=== PATIENT | male | born 1995 | race Two or more races ===

== ENCOUNTER 2023-09-16 14:21 | Inpatient (IN) | payer MEDICAID, OTHER ==
[~2023-09-16] VITALS: Ht 180.3 cm; Wt 106.7 kg
[2023-09-16] MEDS ORDERED: LORazepam 2 MG TABLET PO PRN (15:30)
[2023-09-16] MEDS ORDERED: QUEtiapine FUMARATE 100 MG TABLET PO PRN (15:30)
[2023-09-16 16:01] LABS: COVID AG,FIA SOURCE NASAL SWAB
[2023-09-16 16:04] LABS: APPEARANCE,URINE CLEAR (CLEAR); BILIRUBIN,URINE NEGATIVE (NEGATIVE); COLOR,URINE LIGHT YELLOW (YELLOW); GLUCOSE, URINE (UA) NEGATIVE (NEGATIVE); KETONES,URINE NEGATIVE (NEGATIVE); LEUKOCYTE ESTERASE ,URINE NEGATIVE (NEGATIVE); NITRATE,URINE NEGATIVE (NEGATIVE); OCCULT BLOOD,URINE NEGATIVE (NEGATIVE); PH,URINE 5.5 (5.0-8.0); PROTEIN,URINE TRACE mg/dL (NEGATIVE); SPECIFIC GRAVITIY, URINE 1.009 (1.003-1.030); UROBILINOGEN,URINE <=1.0 mg/dL (<=1.0)
[2023-09-16 16:21] LABS: SARS-COV2 (COVID) ANTIGEN,FIA Negative (Negative)
[2023-09-16 16:37] LABS: BASOPHILS % (AUTO) 0.9 % (0.0-2.0); EOSINOPHILS % (AUTO) 3.9 % (1.0-6.0); HEMATOCRIT 42.9 % (41-53); HEMOGLOBIN 14.7 g/dL (13.5-17.5); LYMPHOCYTES % (AUTO) 21.6 % (22.0-44.0); MEAN CORPUSCULAR HEMOGLOBIN 30.3 pg (26.0-34.0); MEAN CORPUSCULAR HGB CONC 34.4 G/dL (31.0-37.0); MEAN CORPUSCULAR VOLUME 88 fL (80-100); MONOCYTES # (AUTO) 0.7 K/uL (0.1-1.0); MONOCYTES % (AUTO) 8.2 % (2.0-9.0); NEUTROPHILS % (AUTO) 65.4 % (40.0-70.0); PLATELET COUNT (AUTO) 255 K/uL (150-450); RED BLOOD CELL COUNT(AUTO) 4.87 MIL/uL (4.50-5.90); RED CELL DISTRIBUTION WIDTH 13.6 % (11.5-14.5); WHITE BLOOD COUNT (AUTO) 9.2 K/uL (4.5-11.0)
[2023-09-16 16:40] LABS: ANION GAP 7 mmol/L (8-16); CALCIUM, TOTAL 8.8 mg/dL (8.8-10.5); CARBON DIOXIDE 26 mmol/L (22-29); CHLORIDE 104 mmol/L (98-107); CREATININE 0.91 mg/dL (0.60-1.30); GLOMERULAR FILTR. RATE CALC > 60 mL/min (>60); GLUCOSE,RANDOM 96 mg/dL (70-110); POTASSIUM 3.8 mmol/L (3.5-5.1); SODIUM SERUM 137 mmol/L (136-145); UREA NITROGEN, BLOOD 11 mg/dL (7-18)
[2023-09-16 16:45] LABS: ALANINE AMINOTRANSFERASE 25 U/L (12-78); ALBUMIN 3.7 g/dL (3.4-5.0); ALCOHOL, BLOOD (SERUM) 101 mg/dL (0-10); ALKALINE PHOSPHATASE 75 U/L (46-116); ASPARTATE AMINOTRANSFERASE 22 U/L (15-37); BILIRUBIN,TOTAL 0.2 mg/dL (0.1-1.0); TOTAL PROTEIN, SERUM 7.5 g/dL (6.4-8.2)
[2023-09-16] MEDS ORDERED: ACETAMINOPHEN 500 MG TABLET PO ONE (19:45)
[2023-09-17 00:23] LABS: ALCOHOL, URINE DRUG SCREEN POSITIVE (NEGATIVE); AMPHET/METH SCREEN,URINE NEGATIVE (NEGATIVE); BARBITURATE SCREEN, URINE NEGATIVE (NEGATIVE); BENZODIAZEPINES SCREEN,URINE NEGATIVE (NEGATIVE); CANNABINOID SCREEN,URINE NEGATIVE (NEGATIVE); COCAINE SCREEN,URINE NEGATIVE (NEGATIVE); METHADONE SCREEN, URINE NEGATIVE (NEGATIVE); OPIATE SCREEN,URINE NEGATIVE (NEGATIVE); PHENCYCLIDINE SCREEN,URINE NEGATIVE (NEGATIVE)
[2023-09-17 00:27] LABS: PH,URINE DRUG SCREEN 5.5 (5.0-8.0)
[2023-09-17 00:54] VITALS: BP 117/86; PULSE 86; RESP 18; TEMP 97.5
[2023-09-17] MEDS ORDERED: INFLUENZA VIRUS VACCINE QVS 2023-24 (6MO+)/PF 60 MCG/0.5 ML SYRINGE IM. ONE (03:15)
[2023-09-17] MEDS ORDERED: DOCUSATE SODIUM 100 MG CAPSULE PO PRN (07:15)
[2023-09-17] MEDS ORDERED: MAG HYDROX/ALUMINUM HYD/SIMETH ES 30 ML SUSPENSION UDCUP PO PRN (07:15)
[2023-09-17] MEDS ORDERED: ALBUTEROL SULFATE HFA 90 MCG/PUFF 8 GM INHALER IH PRN (07:15)
[2023-09-17] MEDS ORDERED: GuaiFENesin/D-METHORPHAN [SUGAR-FREE] 200-20MG/10 ML SYRUP UDCUP PO PRN (07:15)
[2023-09-17] MEDS ORDERED: LOPERAMIDE HCL 2 MG CAPSULE PO PRN (07:15)
[2023-09-17] MEDS ORDERED: PETROLATUM,WHITE 28 GM JELLY TP PRN (07:15)
[2023-09-17] MEDS ORDERED: NICOTINE 14 MG/24 HOUR PATCH TD PRN (07:15)
[2023-09-17] MEDS ORDERED: MAGNESIUM HYDROXIDE SUSPENSION 30 ML UDCUP PO PRN (07:15)
[2023-09-17] MEDS ORDERED: CloNIDine HCL 0.1 MG TABLET PO PRN (07:15)
[2023-09-17] MEDS ORDERED: ONDANSETRON HCL 4 MG TABLET PO PRN (07:15)
[2023-09-17 08:30] VITALS: BP 149/87; PULSE 84; RESP 18; TEMP 97.8
[2023-09-17] MEDS: NICOTINE 14 MG/24 HOUR PATCH TD SCH (11:51)
[2023-09-17] MEDS: RisperiDONE 1 MG TABLET PO SCH ×2 (11:51→21:03)
[2023-09-17 20:00] VITALS: BP 134/85; PULSE 82; RESP 18; TEMP 97.7
[2023-09-18 08:47] LABS: HEMOGLOBIN A1C 5.6 % (3.8-5.6)
[2023-09-18 09:03] LABS: THYROID STIMULATING HORMONE 1.33 uIU/mL (0.36-3.74)
[2023-09-18] MEDS: NICOTINE 14 MG/24 HOUR PATCH TD SCH (09:37)
[2023-09-18] MEDS: RisperiDONE 1 MG TABLET PO SCH ×2 (09:37→20:56)
[2023-09-18 09:56] VITALS: BP 141/80; PULSE 84; RESP 18; TEMP 98.9
[2023-09-18 10:12] LABS: CHOL/HDL RATIO 4.7 (4.2-7.3)
[2023-09-18 20:34] VITALS: BP 110/63; PULSE 82; RESP 18; TEMP 98
[2023-09-19 09:27] VITALS: BP 121/86; PULSE 86; RESP 18; TEMP 97.8
[2023-09-19] MEDS: RisperiDONE 1 MG TABLET PO SCH ×2 (09:54→20:54)
[2023-09-19] MEDS: NICOTINE 14 MG/24 HOUR PATCH TD SCH (09:54)
[2023-09-19] MEDS: IBUPROFEN 400 MG TABLET PO PRN (12:12)
[2023-09-19 12:13] VITALS: BP 132/87; PULSE 90; RESP 18; TEMP 97.9
[2023-09-19 21:21] VITALS: BP 123/68; PULSE 79; RESP 18; TEMP 97.3
[2023-09-20] MEDS: RisperiDONE 1 MG TABLET PO SCH ×2 (08:22→21:08)
[2023-09-20 08:23] VITALS: BP 136/76; PULSE 73; RESP 18; TEMP 97.4
[2023-09-20] MEDS: IBUPROFEN 400 MG TABLET PO PRN (08:23)
[2023-09-20] MEDS: NICOTINE POLACRILEX 2 MG LOZENGE PO PRN (08:32)
[2023-09-20 09:45] VITALS: BP 136/76; PULSE 73; RESP 18; TEMP 97.4
[2023-09-20 16:32] VITALS: BP 140/74; PULSE 78; RESP 18; TEMP 97.3
[2023-09-20] MEDS: ACETAMINOPHEN 325 MG TABLET PO PRN (16:32)
[2023-09-20 20:40] VITALS: BP 138/82; PULSE 77; RESP 18; TEMP 98.1
[2023-09-21] MEDS: RisperiDONE 1 MG TABLET PO SCH ×2 (09:17→21:01)
[2023-09-21 09:20] VITALS: BP 135/78; PULSE 77; RESP 17; TEMP 97.4
[2023-09-21] MEDS: ACETAMINOPHEN 325 MG TABLET PO PRN (09:20)
[2023-09-21 10:20] VITALS: BP 128/69; PULSE 81; RESP 17; TEMP 98
[2023-09-21 13:11] VITALS: BP 135/78; PULSE 77; RESP 17; TEMP 97.4
[2023-09-21] MEDS: NICOTINE POLACRILEX 2 MG LOZENGE PO PRN (17:54)
[2023-09-21 21:21] VITALS: BP 131/78; PULSE 79; RESP 18; TEMP 97.4
[2023-09-22] MEDS: NICOTINE POLACRILEX 2 MG LOZENGE PO PRN ×2 (07:13→15:03)
[2023-09-22 08:24] VITALS: BP 153/83; PULSE 78; RESP 18; TEMP 97.5
[2023-09-22] MEDS: ACETAMINOPHEN 325 MG TABLET PO PRN (08:24)
[2023-09-22] MEDS: RisperiDONE 1 MG TABLET PO SCH ×2 (08:24→20:52)
[2023-09-22 09:21] VITALS: BP 153/83; PULSE 78; RESP 18; TEMP 97.5
[2023-09-22 21:29] VITALS: BP 125/76; PULSE 70; RESP 18; TEMP 97
[2023-09-23] MEDS: NICOTINE POLACRILEX 2 MG LOZENGE PO PRN (08:46)
[2023-09-23 08:53] VITALS: BP 133/72; PULSE 74; RESP 18; TEMP 98.4
[2023-09-23] MEDS: RisperiDONE 1 MG TABLET PO SCH ×2 (09:50→20:51)
[2023-09-23 21:41] VITALS: BP 128/78; PULSE 86; RESP 19; TEMP 97.7
[2023-09-24 07:18] LABS: COVID AG,FIA SOURCE NASAL SWAB
[2023-09-24 07:53] LABS: SARS-COV2 (COVID) ANTIGEN,FIA Negative (Negative)
[2023-09-24 08:58] VITALS: BP 131/83; PULSE 77; RESP 18; TEMP 97.2
[2023-09-24] MEDS ORDERED: AZITHROMYCIN 500 MG TABLET PO SCH (09:00)
[2023-09-24] MEDS ORDERED: THIAMINE 100 MG/ML 2 ML VIAL IVP SCH (09:00)
[2023-09-24] MEDS: NICOTINE POLACRILEX 2 MG LOZENGE PO PRN (09:10)
[2023-09-24] MEDS: RisperiDONE 1 MG TABLET PO SCH ×2 (09:10→20:48)
[2023-09-24] MEDS: ZINC SULFATE 220 MG CAPSULE PO SCH ×2 (09:13→17:06)
[2023-09-24] MEDS: ASCORBIC ACID 500 MG TABLET PO SCH ×3 (09:13→17:06)
[2023-09-24 20:58] VITALS: BP 123/74; PULSE 70; RESP 18; TEMP 97.5
[2023-09-25] MEDS: RisperiDONE 1 MG TABLET PO SCH ×2 (08:38→21:32)
[2023-09-25] MEDS: NICOTINE POLACRILEX 2 MG LOZENGE PO PRN (08:38)
[2023-09-25 08:47] VITALS: BP 148/91; PULSE 78; RESP 18; TEMP 97.8
[2023-09-25 21:06] VITALS: BP 101/61; PULSE 71; RESP 18; TEMP 97.9
[2023-09-26] MEDS: RisperiDONE 1 MG TABLET PO SCH (08:37)
[2023-09-26] MEDS: NICOTINE POLACRILEX 2 MG LOZENGE PO PRN ×2 (08:39→18:49)
[2023-09-26 08:45] VITALS: BP 139/73; PULSE 82; RESP 18; TEMP 98.2
[2023-09-26] MEDS ORDERED: RisperiDONE 1 MG TABLET PO ONE (09:45)
[2023-09-26 18:35] VITALS: BP 122/76; PULSE 76; RESP 18; TEMP 97.6
[2023-09-26] MEDS: ACETAMINOPHEN 325 MG TABLET PO PRN (18:36)
[2023-09-26 19:35] VITALS: RESP 18
[2023-09-26 20:29] VITALS: BP 145/90; PULSE 93; RESP 18; TEMP 98.4
[2023-09-26] MEDS: RisperiDONE 2 MG TABLET PO SCH (20:57)
[2023-09-26] MEDS: ZOLPIDEM TARTRATE 10 MG TABLET PO PRN (20:57)
[2023-09-27] VITALS (7 sets, daily range): BP systolic 110–142; BP diastolic 69–82; PULSE 87–100; RESP 17–18; TEMP 97.6–97.8
[2023-09-27] MEDS: RisperiDONE 2 MG TABLET PO SCH ×2 (08:18→20:03)
[2023-09-27] MEDS: NICOTINE POLACRILEX 2 MG LOZENGE PO PRN (08:18)
[2023-09-27] MEDS: ACETAMINOPHEN 325 MG TABLET PO PRN ×2 (10:13→20:40)
[2023-09-28 09:00] VITALS: BP 127/79; PULSE 78; RESP 18; TEMP 96.6
[2023-09-28] MEDS: RisperiDONE 2 MG TABLET PO SCH ×2 (09:00→21:01)
[2023-09-28] MEDS: NICOTINE POLACRILEX 2 MG LOZENGE PO PRN (09:19)
[2023-09-28] MEDS: ZOLPIDEM TARTRATE 10 MG TABLET PO PRN (21:01)
[2023-09-28 21:24] VITALS: BP 159/74; PULSE 91; RESP 18; TEMP 97.8
[2023-09-29] MEDS: RisperiDONE 2 MG TABLET PO SCH ×2 (08:16→21:41)
[2023-09-29] MEDS: NICOTINE POLACRILEX 2 MG LOZENGE PO PRN ×2 (08:16→17:51)
[2023-09-29 08:45] VITALS: BP 117/76; PULSE 90; RESP 18; TEMP 98
[2023-09-29 10:20] VITALS: BP 124/80; PULSE 90; RESP 18
[2023-09-29] MEDS: ACETAMINOPHEN 325 MG TABLET PO PRN (10:20)
[2023-09-29 11:20] VITALS: BP 118/80; PULSE 84; RESP 18
[2023-09-29 17:36] VITALS: RESP 18
[2023-09-29 20:51] VITALS: BP 130/78; PULSE 87; RESP 18; TEMP 97.6
[2023-09-29] MEDS: ZOLPIDEM TARTRATE 10 MG TABLET PO PRN (21:41)
[2023-09-30 09:04] VITALS: BP 141/79; PULSE 75; RESP 18; TEMP 97.5
[2023-09-30] MEDS: RisperiDONE 2 MG TABLET PO SCH (09:28)
[2023-09-30] MEDS: NICOTINE POLACRILEX 2 MG LOZENGE PO PRN ×2 (09:28→17:17)
[2023-09-30 17:15] VITALS: BP 126/80; PULSE 84; RESP 18
[2023-09-30] MEDS: ACETAMINOPHEN 325 MG TABLET PO PRN (17:17)
[2023-09-30 18:17] VITALS: RESP 18
[2023-09-30 21:00] VITALS: BP 99/79; PULSE 81; RESP 17; TEMP 98
[2023-09-30] MEDS: RisperiDONE 3 MG TABLET PO SCH (21:08)
[2023-10-01] MEDS: RisperiDONE 3 MG TABLET PO SCH ×2 (08:44→20:44)
[2023-10-01] MEDS: NICOTINE POLACRILEX 2 MG LOZENGE PO PRN (09:11)
[2023-10-01 09:21] VITALS: BP 147/88; PULSE 93; RESP 18; TEMP 96.9
[2023-10-01 20:21] VITALS: BP 129/83; PULSE 93; RESP 18; TEMP 97.9
[2023-10-02 08:25] VITALS: BP 120/60; PULSE 86; RESP 18; TEMP 97.7
[2023-10-02] MEDS: RisperiDONE 3 MG TABLET PO SCH ×2 (08:36→21:17)
[2023-10-02] MEDS: NICOTINE POLACRILEX 2 MG LOZENGE PO PRN ×2 (08:36→17:09)
[2023-10-02] MEDS: IBUPROFEN 400 MG TABLET PO PRN (08:37)
[2023-10-02] MEDS: ACETAMINOPHEN 325 MG TABLET PO PRN (18:02)
[2023-10-02 20:55] VITALS: BP 111/69; PULSE 62; RESP 18; TEMP 98.1
[2023-10-03] MEDS ORDERED: RISP3TAB63 PO (08:31)
[2023-10-03] MEDS: RisperiDONE 3 MG TABLET PO SCH (08:36)
[2023-10-03] MEDS: NICOTINE POLACRILEX 2 MG LOZENGE PO PRN ×2 (08:38→16:33)
[2023-10-03 10:25] VITALS: BP 123/75; PULSE 85; RESP 20; TEMP 97
== END 2023-10-03 17:30 | disposition home or self-care (01) | DRG 750 ==
LOC: EMS 14:21 → 3EI 18:50
PROVIDERS: ADMIT Psychiatry & Neurology Psychiatry; ATTEND Psychiatry & Neurology Psychiatry
PROC: GZHZZZZ Group Psychotherapy (ICD-10-PCS; principal; 2023-09-17)
DX: F25.1 Schizoaffective disorder, depressive type (principal); E78.00 Pure hypercholesterolemia, unspecified; F41.9 Anxiety disorder, unspecified; F10.10 Alcohol abuse, uncomplicated; R03.0 Elevated blood-pressure reading, without diagnosis of hypertension; Z20.822 Contact with and (suspected) exposure to COVID-19; Y90.5 Blood alcohol level of 100-119 mg/100 ml; Z79.899 Other long term (current) drug therapy; Z59.00 Homelessness unspecified
CPT/HCPCS: 80053; 80061; 80307; 81003; 83036; 84443; 85025; 90686; 99285; G0480; Q9967